=== PATIENT | female | born 1975 | race Caucasian/White ===

== ENCOUNTER → 2018-01-29 | Outpatient (REF) | payer OTHER | LOC: M LAB REF 19:48 | DX: N39.0 Urinary tract infection, site not specified (principal) ==

== ENCOUNTER 2018-04-16 16:28 | Emergency (ER) | payer OTHER, BC | END 2018-04-16 18:50 | disposition home or self-care (01) | LOC: M ED 16:28 | DX: S62.660A Nondisplaced fracture of distal phalanx of right index finger, initial encounter for closed fracture (principal); W23.1XXA Caught, crushed, jammed, or pinched between stationary objects, initial encounter; Y92.89 Other specified places as the place of occurrence of the external cause; Y99.0 Civilian activity done for income or pay; Z79.899 Other long term (current) drug therapy | CPT/HCPCS: 73140 ==

== ENCOUNTER → 2018-06-10 | Outpatient (REF) | payer OTHER | LOC: M LAB REF 19:28 | DX: N39.0 Urinary tract infection, site not specified (principal) | CPT/HCPCS: 87186 ==

== ENCOUNTER → 2018-10-09 | Outpatient (REF) | payer BC ==
[~2018-10-09] MED LIST: LOES1TAB12 PO
[2018-10-15 08:06] LABS: HPV HYBRID CAPTURE II Positive (Negative)
== END ==
LOC: M LAB REF 15:30
PROVIDERS: ATTEND Advanced Practice Midwife
DX: Z12.4 Encounter for screening for malignant neoplasm of cervix (principal); R87.610 Atypical squamous cells of undetermined significance on cytologic smear of cervix (ASC-US)
CPT/HCPCS: 87624; G0123

== ENCOUNTER → 2018-12-03 | Outpatient (REF) | payer BC | LOC: M LAB REF 13:40 | PROVIDERS: ATTEND Obstetrics & Gynecology | DX: N87.1 Moderate cervical dysplasia (principal) ==